=== PATIENT | male | born 1980 | race Caucasian/White ===

== ENCOUNTER 2021-10-31 09:21 | Emergency (ER) | payer BC, SELFPAY ==
--- NOTE | 2021-10-31 09:27 | ED.URI ---
HPI - URI/Sore Throat General Chief Complaint: Upper Respiratory Infection Stated Complaint: congestion headache achey Time Seen by Provider: 10/31/21 09:33 Source: patient and RN notes reviewed History of Present Illness HPI Narrative: Patient is a 41-year-old male who presents the urgent care with complaints of headache, body aches, cough and congestion. Patient states he woke up with the symptoms at 4 AM this morning, told his boss, and is now needing a work note. Patient states he increased his water intake and adjust with his insulin pump considering his blood sugars were in the 500s. Patient states that his last blood sugar check prior to arrival was 247. Patient denies any recent fevers, nausea or vomiting. States that he had Covid in September and denies of any recent exposures. No other acute complaints. No acute distress noted. Patient read the plan of care. Some parts of this dictation were generated by voice recognition software and may contain typographical and/or grammatical inaccuracies. Related Data Home Medications Medication Instructions Recorded Confirmed insulin lispro 10/31/21 Allergies Allergy/AdvReac Type Severity Reaction Status Date / Time No Known Allergies Allergy Verified 10/31/21 09:30 Review of Systems Review of Systems: CONSTITUTIONAL: Denies fever, chills, or sweats. EYES: Denies visual changes, redness, or discharge. ENT: Reports of sinus congestion CARDIOVASCULAR: Denies chest pain, palpitations, or edema. RESPIRATORY: Reports a mild cough without dyspnea GASTROINTESTINAL: Denies abdominal pain, nausea, vomiting, or diarrhea. GENITOURINARY: Denies dysuria or hematuria. SKIN: Denies rash or itching. MUSCULOSKELETAL: Denies back pain, joint pain. Reports body aches NEUROLOGIC: Reports of headache All other systems reviewed are negative, except as documented in HPI. PMFSH Comments At the time of my signature, I reviewed and agree with the nursing past medical, surgical, social, and family history. There is no relevant family history pertinent to the patient complaint. Exam Narrative: GENERAL: This is a well-nourished, well-developed patient, in no apparent distress. HEAD: normocephalic, atraumatic. EYES: PERRL. Sclera clear/white. Vision is grossly intact. EARS: External ears normal, auditory canals clear and without drainage, TMs normal without perforation. Hearing grossly intact. NOSE: External nose normal with no obvious nasal discharge, nares without redness, no rhinorrhea. THROAT: Mucous membranes moist, posterior pharynx clear. Mild postnasal drainage NECK: Neck supple CARDIOVASCULAR: Regular rate and rhythm without murmurs, gallops, or rubs. RESPIRATORY: Clear to auscultation. Breath sounds equal bilaterally. No wheezes, rales, or rhonchi. SKIN: warm, intact with no suspicious lesions or rash, good texture and turgor. NEURO: awake, alert, and oriented to person, place and time. There were no obvious focal neurologic abnormalities. EXTREMITIES: No clubbing, cyanosis, or edema. Course Course Level of Care: Express Care Visit Vital Signs Vital signs: Vital Signs Temperature 98.1 F 10/31/21 09:28 Pulse Rate 97 10/31/21 09:28 Respiratory Rate 16 10/31/21 09:28 Blood Pressure 121/89 10/31/21 09:28 Pulse Oximetry 100 10/31/21 09:28 Temperature 98.1 F 10/31/21 09:28 Pulse Rate 97 10/31/21 09:28 Respiratory Rate 16 10/31/21 09:28 Blood Pressure 121/89 10/31/21 09:28 Pulse Oximetry 100 10/31/21 09:28 Reviewed MDM - URI/Sore Throat MDM Narrative Medical decision making narrative: Reviewed lab results with the patient. He is aware that flu swab was negative. Educated patient on [id number] medications. Advised him to take antihistamine and Flonase nasal spray. Use Tylenol/ibuprofen as needed for body aches. Be sure to keep an eye on your blood sugar levels and go to the emergency room if you have high readings with associated symp
[2021-10-31 09:28] VITALS: BP 121/89; PULSE 97; RESP 16; TEMP 36.7; O2SAT 100
== END 2021-10-31 09:48 | disposition home or self-care (01) ==
PROVIDERS: Emergency Provider Nurse Practitioner Family
DX: J06.9 Acute upper respiratory infection, unspecified (principal); E11.9 Type 2 diabetes mellitus without complications; Z86.16 Personal history of COVID-19
CPT/HCPCS: 87804; 99213; G0463

== ENCOUNTER 2022-03-07 11:51 | Emergency (ER) | payer OTHER, BC, SELFPAY ==
--- NOTE | ~2022-03-07 | XR_ITS ---
EXAMINATION: XR orbits min 4V DATE: 03/07/2022 12:52 INDICATION: Face injury. TECHNIQUE: 4 views of the orbits were obtained. COMPARISON: Head CT 08/19/2014 FINDINGS: Bone alignment is normal. No fracture. IMPRESSION: 1. No fracture. Reviewed, dictated and finalized at location A. IMPRESSION: 1. No fracture.
--- NOTE | ~2022-03-07 | XR_ITS ---
EXAMINATION: XR nasal bones min 3V DATE: 03/07/2022 12:52 INDICATION: Face injury. TECHNIQUE: 3 views of the nasal bones were obtained. COMPARISON: Head CT 08/19/2014 FINDINGS: Bone alignment is normal. No fracture. IMPRESSION: 1. Normal nasal bones. Reviewed, dictated and finalized at location A. IMPRESSION: 1. Normal nasal bones.
[2022-03-07 12:03] VITALS: BP 112/78; PULSE 78; RESP 18; TEMP 36.6; O2SAT 98
--- NOTE | 2022-03-07 12:10 | ED.GENADULT ---
HPI - General Adult General Stated complaint: Nose Injury Time Seen by Provider: 03/07/22 12:25 Source: patient Mode of arrival: ambulatory Limitations: no limitations History of Present Illness HPI narrative: 41-year-old male presents with concern for injury to his nose and face. He reports this morning while at work he was on a ladder approximately 5 feet in the air drilling into a wall. Reports the drill bounced back and hit him below the right eye and on the right side of his nose. Reports he then fell off the ladder, does not know if he hit his head. He reports an episode of vomiting, dizziness. His sister reports he was incoherent. He reports a posterior throbbing headache. He denies nosebleed, open skin. Patient reports history of diabetes, reports this morning when he woke up prior to his injury, his blood sugar was 500 because his pump had become dislodged overnight. He reports he got his blood sugar down to 300 and then went to work. He reports after his injury his blood sugar was in the 470's. Patient reports he wears contact lenses, however has not had an eye exam in a while MD complaint: Head injury Related Data Home Medications Medication Instructions Recorded Confirmed insulin lispro 100 unit/mL sliding scale dose subcut TID 03/07/22 subcutaneous solution insulin pump cart,cont inf,BT 03/07/22 03/07/22 (Omnipod Dash Pods (Gen 4) subcutaneous cartridge) Allergies Allergy/AdvReac Type Severity Reaction Status Date / Time No Known Allergies Allergy Verified 03/07/22 12:33 Review of Systems Review of Systems: CONSTITUTIONAL: Denies malaise, chills, sweats, or fever. Reports fatigue and feeling weird EYES: Denies visual changes, redness, or discharge. Reports right eye pain ENT: Denies epistaxis. Reports nose pain CARDIOVASCULAR: Denies chest pain, palpitations, or edema. RESPIRATORY: Denies cough or dyspnea. GASTROINTESTINAL: Reports 1 episode of vomiting SKIN: Denies lacerations or abrasions MUSCULOSKELETAL: Denies back pain, joint pain NEUROLOGIC: Reports dizziness and posterior headache All systems reviewed & are unremarkable except as noted in HPI and below PMFSH Comments At time of signature, agree with nursing past medical, surgical, social and family history. There is no relevant family history pertinent to the presenting complaint Exam Narrative: GENERAL: Well-appearing, well-nourished, and in no acute distress. HEAD: Normocephalic, atraumatic. EYES: PERRLA, sclera clear, and EOMI. No nystagmus. Patient reports pain with upward movement of the right eye ENT: Nares clear, turbinates pink, no rhinorrhea or epistaxis. Mucous membranes moist. TM pearly pulido with sharp light reflex bilaterally; no tragal tenderness. NECK: Supple. No lymphadenopathy. CHEST: No respiratory distress. Clear to auscultation. No bony deformities, no asymmetry. Speaks in full sentences. HEART: Regular rate and rhythm. No murmur heard. Normal peripheral pulses. EXTREMITIES: Normal range of motion. No edema. Normal strength and sensation. SKIN: Warm, dry, no visible rash. NEURO: Alert and oriented x3. No focal deficits. Cranial nerves II through XII grossly intact PSYCH: Normal mood and affect Course Course Emergency Course: Discussed with patient that I recommend transfer to emergency department for evaluation of his head injury, potential orbital injury. Patient refuses to go to the emergency room. Offered patient x-ray, plan to discussed transfer to emergency department again after x-ray results. Discussed x-ray findings with patient, reiterated my advice to go to the emergency room for possible head CT and orbital bone CT, patient continues to refuse. Anticipatory guidance given. Portions of this record may have been created with voice recognition software Level of Care: Express Care Visit Vital Signs Vital signs: Vital Signs Temperature 98 F 03/07/22 12:03 Pulse Rate 78 03/07/22 12
== END 2022-03-07 13:10 | disposition left against medical advice (07) ==
PROVIDERS: Emergency Provider Nurse Practitioner
DX: S09.90XA Unspecified injury of head, initial encounter (principal); W29.8XXA Contact with other powered hand tools and household machinery, initial encounter; E11.9 Type 2 diabetes mellitus without complications; Z86.16 Personal history of COVID-19
CPT/HCPCS: 70160; 70200; 99213; G0463

== ENCOUNTER 2022-04-24 09:47 | Emergency (ER) | payer BC, SELFPAY ==
[2022-04-24 09:50] VITALS: BP 122/75; PULSE 89; RESP 14; TEMP 36.6; O2SAT 99
--- NOTE | 2022-04-24 09:53 | ED.GENADULT ---
HPI - General Adult General Chief complaint: Unspecified Stated complaint: Blood Sugar Problem Time Seen by Provider: 04/24/22 09:53 Source: patient Mode of arrival: ambulatory Limitations: no limitations History of Present Illness HPI narrative: Mr. Ospina is a 41-year-old male patient presenting to the clinic today with complaints of blood sugar problems. He reports symptoms have been going on since Saturday. He reports that his blood sugars been very high and then will go low as a ping-pong affect per patient. He is reports Saturday he ate 2 hotdogs without the bun and a couple chips and his blood sugar raised over 300. He has a insulin pump and states that this was unusual for his blood sugar to spike like this. He contacted his primary care provider and they suggested he come to the urgent care to be seen to rule out a source of infection to cause his blood sugar to increase like this. He reports prior to his blood sugar spiking that he had a puncture wound to the right upper shoulder from a nail at work. Reports his tetanus is unknown. He denies any fever or chills. He denies any urinary symptoms unless his blood sugars elevated he has frequency. He reports he has had a slight headache and cough. He denies any sore throat. Related Data Home Medications Medication Instructions Recorded Confirmed insulin lispro 100 unit/mL 15 sliding scale dose subcut TID 03/07/22 subcutaneous solution insulin pump cart,cont inf,BT 03/07/22 03/07/22 (Omnipod Dash Pods (Gen 4) subcutaneous cartridge) Allergies Allergy/AdvReac Type Severity Reaction Status Date / Time No Known Allergies Allergy Verified 04/24/22 10:06 Review of Systems Review of Systems: Pertinent positives per HPI. Patient denies any fever, chills, rash, visual changes, dizziness, runny nose, sore throat, shortness of breath, chest pain, palpitations, nausea, vomiting, diarrhea, constipation, abdominal pain. PMFSH Comments At the time of my signature, I reviewed and agree with the nursing past medical, surgical, social, and family history. There is no relevant family history pertinent to the patient complaint. Exam Narrative: General: Well-developed, well nourished, in no apparent distress Head: Normocephalic, atraumatic Eyes: Pupils equally round and reactive to light bilaterally, EOM intact, sclera and conjunctive clear, no discharge, lids normal Ears: TMs intact and clear, ear canals clear, no drainage, grossly hearing normal. Nose: Nares patent, no discharge, no inflammation, no sinus tenderness. Mouth: Oropharynx without lesions or masses, good dentition, MMM. Neck: Supple, trachea midline, no enlargement of anterior or posterior cervical nodes, no thyroid masses or goiter palpable. Cardio: Regular rate and rhythm, s1 and s2 normal, no murmur appreciated. Resp: Clear to auscultation bilaterally anteriorly and posteriorly, no rhonchi, rales, wheezing or rubs Abdomen: Soft, pliable, non-tender to palpation, no organomegly, No CVAT tenderness. Skin: Intact, pink, and dry, healing non infected puncture wound to the right posterior shoulder. Course Course Emergency Course: Portions of this record may have been created with voice recognition software. Level of Care: Express Care Visit Vital Signs Vital signs: Vital Signs Temperature 36.6 C 04/24/22 09:50 Pulse Rate 89 04/24/22 09:50 Respiratory Rate 14 04/24/22 09:50 Blood Pressure 122/75 04/24/22 09:50 Pulse Oximetry 99 04/24/22 09:50 Oxygen Delivery Room Air 04/24/22 09:50 Temperature 36.6 C 04/24/22 09:50 Pulse Rate 89 04/24/22 09:50 Respiratory Rate 14 04/24/22 09:50 Blood Pressure 122/75 04/24/22 09:50 Pulse Oximetry 99 04/24/22 09:50 Oxygen Delivery Room Air 04/24/22 09:50 Vital signs reviewed Medical Decision Making MDM Narrative Medical decision making narrative: At the time of visit patient is resting comfortably on the e
[2022-04-24 10:03] LABS: Glucose Point of Care 267 mg/dl (65-105)
[2022-04-24] MEDS: TETANUS,DIPHTHERIA,AC PERTUSSIS ADULT (0.5 ML) BOOSTRIX IM (10:12)
== END 2022-04-24 10:36 | disposition home or self-care (01) ==
PROVIDERS: Emergency Provider Nurse Practitioner Family
DX: E10.65 Type 1 diabetes mellitus with hyperglycemia (principal); Z79.4 Long term (current) use of insulin; Z20.822 Contact with and (suspected) exposure to COVID-19; S41.031A Puncture wound without foreign body of right shoulder, initial encounter; W45.0XXA Nail entering through skin, initial encounter; Y99.0 Civilian activity done for income or pay; R81 Glycosuria; Z86.16 Personal history of COVID-19; Z23 Encounter for immunization
CPT/HCPCS: 81003; 82948; 87426; 90471; 90715; 99213; C9803; G0463